=== PATIENT | female | born 1950 | race Caucasian/White ===

== ENCOUNTER 2017-09-03 11:36 | Outpatient (CLI) | payer MEDICARE ==
--- NOTE | 2017-09-04 10:11 | Mammography Report ---
BILATERAL SCREENING MAMMOGRAM: 09/03/2017 COMPARISON: Mammogram 05/21/2016. INDICATION: Screening. TECHNIQUE: Bilateral CC and MLO breast views. FINDINGS: The breast parenchyma is heterogeneously dense which may limit the sensitivity of mammography. No dominant mass, architectural distortion, or concerning cluster of microcalcifications is seen. There are postoperative changes of the right breast. IMPRESSION: 1. BI-RADS CATEGORY 2. BENIGN FINDINGS. 2. RECOMMEND ANNUAL SCREENING MAMMOGRAM. STANDARD QUALIFYING STATEMENTS: 1. This examination was reviewed with the aid of Computer-Aided Detection (CAD) . 2. A negative or benign imaging report should not delay biopsy if clinically suspicious findings are present. Consider surgical consultation if warranted. More than 5 % of cancers are not identified by imaging. 3. Dense breasts may obscure an underlying neoplasm. TD: 09/04/2017 10:10 DEIDRA
== END 2017-09-03 11:37 | disposition home or self-care (01) ==
LOC: DI.S 11:36
PROVIDERS: ATTEND Registered Nurse
DX: Z12.31 Encounter for screening mammogram for malignant neoplasm of breast (principal)
CPT/HCPCS: 77067

== ENCOUNTER 2018-12-31 10:11 | Outpatient (CLI) | payer MEDICARE ==
--- NOTE | 2019-01-05 11:10 | Mammography Report ---
Reason: ENCOUNTER FOR SCREENING MAMMOGRAM FOR MALIGNANT NE Procedure Date: 12/31/2018 Accession Number: [id number] / [id number] Procedure: MGS - Screening Mammo Dig Bilat CPT Code: FULL RESULT: EXAM: Screening Mammo Dig Bilat DATE: 12/31/2018 10:33 AM CLINICAL HISTORY: Screening encounter. History of incisional right breast biopsy 1977. History of nulliparity. TECHNIQUE: (B) - Bilateral CC and MLO views were obtained. Right laterally exaggerated CC view was obtained. COMPARISON: 09/03/2017 through 05/05/2014. PARENCHYMAL PATTERN: (D) - The breast(s) demonstrate(s) heterogeneously dense fibroglandular parenchyma. FINDINGS: There are no suspicious masses, calcifications, or areas of distortion. IMPRESSION: Negative examination. BI-RADS category 1. RECOMMENDATION: (ANNUAL) - Recommend routine annual screening mammography. BI-RADS CATEGORY: (1) - Negative. STANDARD QUALIFYING STATEMENTS: 1. This examination was reviewed with the aid of Computer-Aided Detection (CAD). 2. A negative or benign imaging report should not preclude biopsy if clinically suspicious findings are present. 3. Dense breasts may obscure an underlying neoplasm. 4. This examination was reviewed without the aid of 3D breast imaging (tomosynthesis).
== END 2018-12-31 10:12 | disposition home or self-care (01) ==
LOC: DI.S 10:11
PROVIDERS: ATTEND Registered Nurse
DX: Z12.31 Encounter for screening mammogram for malignant neoplasm of breast (principal)
CPT/HCPCS: 77067

== ENCOUNTER 2019-12-16 13:56 | Outpatient (CLI) | payer MEDICARE ==
[2019-12-16 20:10] LABS: BASOPHILS % (AUTO) 0.3 %; EOSINOPHILS % (AUTO) 0.3 %; HGB - HEMOGLOBIN 14.9 g/dL (12.0-16.0); LYMPHOCYTES # (AUTO) 1.5 10^3/uL (1.5-3.5); LYMPHOCYTES % (AUTO) 16.8 %; MEAN CORPUSCULAR HEMOGLOBIN 30.1 pg (27.0-31.0); MEAN CORPUSCULAR HGB CONC 32.3 g/dL (32.0-36.0); MEAN CORPUSCULAR VOLUME 93.3 fL (81.0-99.0); MEAN PLATELET VOLUME 9.6 fL (7.9-10.8); MONOCYTES # (AUTO) 0.9 10^3/uL (0.0-1.0); MONOCYTES % (AUTO) 9.6 %; NEUTROPHILS # (AUTO) 6.5 10^3/uL (1.5-6.6); NEUTROPHILS % (AUTO) 72.7 %; PLT - PLATELET COUNT 256 10^3/uL (130-450); RED BLOOD COUNT 4.95 10^6/uL (4.20-5.40); RED CELL DISTRIBUTION WIDTH 12.7 % (12.0-15.0); WHITE BLOOD COUNT 8.9 x10^3/uL (4.8-10.8)
[2019-12-16 20:15] LABS: RHEUMATOID FACTOR NEGATIVE (Negative)
[2019-12-16 20:29] LABS: ALBUMIN/GLOBULIN RATIO 1.4 (1.0-2.2); ALKALINE PHOSPHATASE 66 IU/L (42-121); ALT ALANINE AMINOTRANSFERASE 17 IU/L (10-60); AST ASPARTATE AMINOTRANSFERASE 21 IU/L (10-42); BILIRUBIN,TOTAL 0.7 mg/dL (0.2-1.0); BUN - BLOOD UREA NITROGEN 28 mg/dL (6-20); CALCIUM 9.9 mg/dL (8.5-10.3); CARBON DIOXIDE - CO2 27 mmol/L (21-32); CHLORIDE 103 mmol/L (101-111); CREATININE 0.7 mg/dL (0.4-1.0); GLUCOSE 155 mg/dL (70-100); SODIUM 137 mmol/L (135-145); TOTAL PROTEIN 6.8 g/dL (6.7-8.2)
[2019-12-16 20:41] LABS: THYROID STIMULATING HORMONE 1.08 uIU/mL (0.34-5.60)
[2019-12-16 20:43] LABS: FREE T3 2.99 pg/mL (2.5-3.9); FREE T4 (FREE THYROXINE) 0.93 ng/dL (0.58-1.64)
[2019-12-16 21:06] LABS: CRP - C-REACTIVE PROTEIN < 1.0 mg/dL (0-1.0)
[2019-12-19 19:39] LABS: ANA SCREEN NEGATIVE (NEGATIVE)
== END 2019-12-16 13:57 | disposition home or self-care (01) ==
LOC: LAB.S 13:56
PROVIDERS: ATTEND Nurse Practitioner Family
DX: L53.9 Erythematous condition, unspecified (principal)
CPT/HCPCS: 36415; 80053; 82378; 84439; 84443; 84481; 85025; 85651; 86038; 86140; 86430

== ENCOUNTER 2021-02-28 11:03 | Outpatient (CLI) | payer MEDICARE ==
--- NOTE | 2021-03-01 12:54 | Mammography Report ---
BILATERAL DIGITAL SCREENING MAMMOGRAM 3D/2D WITH EXAGGERATED CC: 02/28/2021 CLINICAL: Routine screening. Comparison is made to exams dated: 12/31/2018 mammogram, 09/03/2017 mammogram, and 05/21/2016 mammogra m - [facility]. There are scattered fibroglandular elements in both breasts. No significant masses, calcifications, or other findings are seen in either breast. There has been no significant interval change. IMPRESSION: NEGATIVE There is no mammographic evidence of malignancy. A 1 year screening mammogram is recommended. This exam was interpreted at Station ID: [id number]. NOTE: For mammograms, a report in lay terms will be sent to the patient. Approximately 15% of breast malignancies will not be visualized mammographically. In the management of a palpable breast mass, a negative mammogram must not discourage biopsy of a clinically suspicious lesion. Electronically Signed By: rAmond Castaneda M.D. ar/penrad:02/28/2021 11:50:04 ACR BI-RADS Category 1: Negative 3341F PARENCHYMAL PATTERN: (A) - The breast(s) demonstrate(s) scattered fibroglandular densities. BI-RADS CATEGORY: (1) - 1 RECOMMENDATION: (ANNUAL) - Recommend routine annual screening mammography. [id number] 1 year screening LATERALITY: (B)
== END 2021-02-28 11:04 | disposition home or self-care (01) ==
LOC: DI.S 11:03
DX: Z12.31 Encounter for screening mammogram for malignant neoplasm of breast (principal)

== ENCOUNTER 2022-03-06 09:47 | Outpatient (CLI) | payer MEDICARE ==
--- NOTE | 2022-03-07 12:50 | Mammography Report ---
BILATERAL DIGITAL SCREENING MAMMOGRAM 3D/2D WITH EXAGGERATED CC: 03/06/2022 CLINICAL: Routine screening. Comparison is made to exams dated: 05/21/2016 mammogram, 09/03/2017 mammogram, 12/31/2018 mammogram, a nd 02/28/2021 mammogram - [facility]. There are scattered areas of fibroglandular density in both breasts (category b / 25%-50% glandular t issue). No significant masses, calcifications, or other findings are seen in either breast. There has been no significant interval change. IMPRESSION: NEGATIVE There is no mammographic evidence of malignancy. A 1 year screening mammogram is recommended. Based on the Tyrer Cuzick model (a risk assessment model) the patients lifetime risk is 4.9% and her 10 year risk is 3.7%. According to the ACR, ACS, and NCCN guidelines, an annual breast MRI exam randee g with mammogram is recommended if the patients lifetime risk is 20% or greater. This exam was interpreted at Station ID: [id number]. NOTE: For mammograms, a report in lay terms will be sent to the patient. Approximately 15% of breast malignancies will not be visualized mammographically. In the management of a palpable breast mass, a negative mammogram must not discourage biopsy of a clinically suspicious lesion. Electronically Signed By: Ash cohen/reza:03/07/2022 09:32:47 ACR BI-RADS Category 1: Negative 3341F PARENCHYMAL PATTERN: (A) - The breast(s) demonstrate(s) scattered fibroglandular densities. BI-RADS CATEGORY: (1) - 1 RECOMMENDATION: (ANNUAL) - Recommend routine annual screening mammography. [id number] 1 year screening LATERALITY: (B)
== END 2022-03-06 09:48 | disposition home or self-care (01) ==
LOC: DI.S 09:47
DX: Z12.31 Encounter for screening mammogram for malignant neoplasm of breast (principal)

== ENCOUNTER 2022-03-09 12:46 | Outpatient (CLI) | payer MEDICARE ==
--- NOTE | 2022-03-09 16:06 | DEXA Report ---
PROCEDURE: Dexa Spine and/or Hip INDICATIONS: OSTEOPENIA TECHNIQUE: Dual energy x-ray absorptiometry (DXA) was performed on a [employer] System. Regions measur ed are the AP Spine, femoral neck, and if needed forearm. COMPARISON: 05/21/2016. FINDINGS: Lumbar Spine: Bone Mineral Density 1.016 g/cm/cm,T score -1.4. There is interval 0.3% decrease in total lumbar s pine bone mineral density. Left Hip: Bone Mineral Density 0.758 g/cm/cm,T score -2.0. There is interval 7.8% decrease in left total hip b one mineral density. Left Femoral Neck: Bone Mineral Density 0.746 g/cm/cm, T score -2.1. (T score greater or equal to -1.0: NORMAL) (T score from -1.1 to -2.4: OSTEOPENIA) (T score less than or equal to -2.5 to: OSTEOPOROSIS) Impression: Osteopenia. Patients with diagnosis of osteoporosis or osteopenia should have regular bone mineral density assess ment. For those eligible for Medicare, routine testing is allowed once every 2 years. Testing frequ ency can be increased for patients who have rapidly progressing disease or for those who are receivin g medical therapy to restore bone mass. Reviewed by: Campos Guzman MD on 03/09/2022 4:05 PM PDT Approved by: Campos Guzman MD on 03/09/2022 4:05 PM PDT Station ID: [id number]
== END 2022-03-09 12:47 | disposition home or self-care (01) ==
LOC: DI 12:46
PROVIDERS: ATTEND Registered Nurse
DX: M85.88 Other specified disorders of bone density and structure, other site (principal)

== ENCOUNTER 2023-02-20 23:49 | Outpatient (CLI) | payer MEDICARE | END 2023-02-20 23:59 | disposition critical access hospital (66) | LOC: EMS 23:49 | DX: L50.9 Urticaria, unspecified (principal) | CPT/HCPCS: A0425; A0427 ==

== ENCOUNTER 2023-02-21 00:15 | Emergency (ER) | payer MEDICARE ==
--- NOTE | 2023-02-21 01:16 | ED Physician Documentation ---
PD HPI SKIN - Stated complaint Stated Complaint: ALLERGIC REACTION - Chief complaint Chief Complaint: Allergic Rx - History obtained from History obtained from: Patient - Additional information Additional information: BIBA. Patient c/o pruritic rash. Yesterday, patient noted sudden onset pruritic rash behind right knee, applied topical cortisone and rash resolved within few hours. Since this morning, she notes BUE pruritic exanthem that has gradually spread to involve abdomen, chest, back. Denies dyspnea, wheezing, chest tightness, jaz/intraoral swelling or sensation of constriction. Given IV benadryl by EMS CALL CENTER PROFESSIONAL and symptoms nearly resolved by the time of this HPI/ROS; at the time of my HPI/ROS, only c/o bilateral forearm pruritic rash, flexor surfaces. Has not had this before. No known allergies and no apparent trigger for this event. Review of Systems Constitutional: reports: Reviewed and negative Cardiac: denies: Chest pain / pressure Respiratory: denies: Dyspnea, Cough, Wheezing Skin: reports: Rash PD PAST MEDICAL HISTORY - Past Surgical History Past Surgical History: Yes HEENT: Tonsil/Adenoidectomy - Present Medications Home Medications: Ambulatory Orders Medication Instructions Recorded Confirmed predniSONE [Deltasone] 40 mg PO DAILY 4 Days #5 tablet 02/21/23 - Allergies Allergies/Adverse Reactions: Allergies Allergy/AdvReac Type Severity Reaction Status Date / Time No Known Drug Allergies Allergy Verified 02/21/23 00:34 - Social History Does the pt smoke?: No Smoking Status: Never smoker PD ED PE NORMAL - Vitals Vital signs reviewed: Yes - General General: Alert and oriented X 3, No acute distress, Well developed/nourished - HEENT HEENT: Pharynx benign (airway widely patent) - Cardiac Cardiac: RRR, No murmur - Respiratory Respiratory: No respiratory distress, Clear bilaterally PD ED PE EXPANDED - Derm Derm: Other (bilateral forearms, flexor surfaces: faint, scattered urticaria) Results - Vitals Vitals: Oxygen O2 Source Room air PD Medical Decision Making - ED course Complexity details: considered differential, d/w patient ED course: Patient reports dramatic improvement after having received diphenhydramine from EMS. We discussed steroids as next-line treatment, but given her response to anti-histamine, mutual decision making process resulted in following plan: d/c without steroids at this time but rx provided, to be started if OTC antihistamines are inadequately effective for symptoms per label instructions. She also is advised to take pepcid if benadryl alone ineffective (can use as a bridge to steroids or else in addition to steroids). Return precautions discussed. Departure - Departure Disposition: 01 Home, Self Care Clinical Impression: Allergic urticaria Condition: Good Instructions: ED Urticaria Follow-Up: Karen Kate, ENVIRONMENTAL SAMPLER [Primary Care Provider] - Prescriptions: predniSONE [Deltasone] 40 mg PO DAILY 4 Days #5 tablet Comments: The cause of your rash is not apparent at this time, but, as we discussed, the most likely explanation is an allergic reaction. It is very common for this type of rash to present to the emergency department without an obvious/apparent cause. If you have further episodes, it is possible that it becomes apparent as to what the, and trigger is. You can follow-up with your primary care provider to discuss possible referral to an as400 operator. You can take Benadryl 25-50 mg by mouth every 6 hours as needed for symptoms (rash). If the Benadryl alone is not sufficiently improving the symptoms, you should start the steroid that I have prescribed (prednisone). As we discussed, another medication you can try, in addition to the Benadryl, is Pepcid (follow label instructions); this works through an antihistamine effect (predominantly gastrointestinal histamine receptors, but there is a small amount of crossover to the histamine receptors involved in allergic reactions such as yours). I have electronically submitted the prescription for the steroid (prednisone) to the [facility] in [place]. Forms: PCP List Discharge Date/Time: 02/21/23 03:01
[2023-02-21 11:02] VITALS: BP 136/81; O2SAT 99
== END 2023-02-21 03:01 | disposition home or self-care (01) ==
LOC: EDUNIT# → ED 00:15
DX: L50.0 Allergic urticaria (principal)
CPT/HCPCS: 99283

== ENCOUNTER 2023-04-03 10:47 | Outpatient (CLI) | payer MEDICARE ==
--- NOTE | 2023-04-04 10:01 | Mammography Report ---
BILATERAL DIGITAL SCREENING MAMMOGRAM 3D/2D WITH EXAGGERATED CC: 04/03/2023 CLINICAL: Routine screening. Comparison is made to exams dated: 02/28/2021 mammogram, 03/06/2022 mammogram, and 12/31/2018 mammogram - [facility]. There are scattered areas of fibroglandular density in both breasts (category b / 25%-50% glandular t issue). No significant masses, calcifications, or other findings are seen in either breast. There has been no significant interval change. IMPRESSION: NEGATIVE There is no mammographic evidence of malignancy. A 1 year screening mammogram is recommended. Based on the Tyrer Cuzick model (a risk assessment model) the patients lifetime risk is 4.7% and her 10 year risk is 3.9%. According to the ACR, ACS, and NCCN guidelines, an annual breast MRI exam randee g with mammogram is recommended if the patients lifetime risk is 20% or greater. This exam was interpreted at Station ID: [id number]. NOTE: For mammograms, a report in lay terms will be sent to the patient. Approximately 15% of breast malignancies will not be visualized mammographically. In the management of a palpable breast mass, a negative mammogram must not discourage biopsy of a clinically suspicious lesion. Electronically Signed By: Ash Dickey M.D. aty/:04/04/2023 07:15:55 letter sent: No_Letter ACR BI-RADS Category 1: Negative 3341F PARENCHYMAL PATTERN: (A) - The breast(s) demonstrate(s) scattered fibroglandular densities. BI-RADS CATEGORY: (1) - 1 Mammogram [id number] 1 year screening LATERALITY: (B)
== END 2023-04-03 10:48 | disposition home or self-care (01) ==
LOC: DI.S 10:47
PROVIDERS: ATTEND Registered Nurse
DX: Z12.31 Encounter for screening mammogram for malignant neoplasm of breast (principal); R92.323 Mammographic fibroglandular density, bilateral breasts

== ENCOUNTER 2023-10-03 02:51 | Outpatient (CLI) | payer MEDICARE | END 2023-10-03 23:59 | disposition critical access hospital (66) | LOC: EMS 02:51 | DX: I48.91 Unspecified atrial fibrillation (principal) | CPT/HCPCS: A0425; A0427 ==

== ENCOUNTER 2023-10-03 03:17 | Emergency (ER) | payer MEDICARE ==
--- NOTE | 2023-10-03 03:14 | ED Physician Documentation ---
History of Present Illness - Stated complaint Stated Complaint: IRREG HR - History obtained from History obtained from: Patient, EMS - Additonal information Additional information: HPI from patient, EMS. Patient BIBA for sudden onset rapid palpitations at approximately 1 AM. Onset was while at home, at rest but awake. Denies chest pain, diaphoresis, n/v. Denies leg swelling. Had similar episode in the past but testing/evaluation was undertaken after symptoms had resolved. EMS arrived to find heart rate 150s with EKG c/w CLAIRE. Patient given 15mg IV diltiazem en route and, by the time of ED arrival, she is asymptomatic and heart rate is 100-110 although rhythm unclear upon ED triage. Patient denies cardiac history. She has never had stress test. Review of Systems Cardiac: reports: Palpitations. denies: Chest pain / pressure, Pedal edema, Calf pain Respiratory: reports: Reviewed and negative GI: reports: Reviewed and negative PD PAST MEDICAL HISTORY - Past Medical History Past Medical History: No - Present Medications Home Medications: Ambulatory Orders Medication Instructions Recorded Confirmed No Known Home Medications 10/03/23 10/03/23 - Allergies Allergies/Adverse Reactions: Allergies Allergy/AdvReac Type Severity Reaction Status Date / Time No Known Drug Allergies Allergy Verified 10/03/23 03:43 PD ED PE NORMAL - Vitals Vital signs reviewed: Yes - General General: Alert and oriented X 3, No acute distress, Well developed/nourished - Cardiac Cardiac: RRR, No murmur, No gallop, No rub, Other (baseline is regular rhythm with frequent extra beats that correlate with PACs on monitor) - Respiratory Respiratory: No respiratory distress, Clear bilaterally - Abdomen Abdomen: Soft, Non tender - Extremities Extremities: No edema Results - Vitals Vitals: Vital Signs - 24 hr 10/03/23 10/03/23 10/03/23 03:20 03:27 04:00 Temperature 36.6 C Heart Rate 71 65 Respiratory 18 17 Rate Blood Pressure 130/72 117/67 Blood Pressure 128/71 [Right] O2 Saturation 100 99 10/03/23 10/03/23 04:30 05:00 Temperature 36.7 C Heart Rate 64 64 Respiratory 16 16 Rate Blood Pressure 117/68 117/69 Blood Pressure [Right] O2 Saturation 99 99 Oxygen O2 Source Room air - EKG (time done) No standard instances EKG releavant findings:: EKG personally interpreted by author of this note. Relevant findings are: Rate: Rate (enter#) (73) Rhythm: NSR [place]: Normal Intervals: Normal [place] QRS: Normal Ischemia: Normal ST segments - Labs Labs: Laboratory Tests 10/03/23 10/03/23 03:42 03:42 WBC 6.1 RBC 4.90 Hgb 14.7 Hct 46.4 MCV 94.7 MCH 30.0 MCHC 31.7 L RDW 12.4 Plt Count 199 MPV 9.5 Neut # (Auto) 4.2 Lymph # (Auto) 1.1 L Josephine # (Auto) 0.6 Eos # (Auto) 0.1 Baso # (Auto) 0.0 Absolute Nucleated RBC 0.00 Nucleated RBC % 0.0 Sodium 137 Potassium 3.7 Chloride 105 Carbon Dioxide 27 Anion Gap 5.0 L BUN 21 H Creatinine 0.6 Estimated GFR (MDRD) 98 Glucose 141 H Calcium 9.8 Total Bilirubin 0.4 AST 16 ALT 13 Alkaline Phosphatase 78 Troponin I High Sens 15.2 H* Total Protein 6.6 Albumin 3.8 Globulin 2.8 Albumin/Globulin Ratio 1.4 Lipase 12 - Rads (name of study) chest xray Relevant Findings:: Prelim report reviewed, See rad report PD Medical Decision Making - ED course Complexity details: reviewed results, re-evaluated patient, considered differential, d/w patient ED course: Presents via EMS for rapid palpitations associated with new-onset rapid atrial fibrillation. Given 15mg cardizem en route by EMS and she appears to be in NSR with frequent ectopy (mostly PACs although occasional PVCs also noted on monitor). EMS provides EKG performed in field which demonstrate CLAIRE with rate 150s s/o 2:1 atrial flutter. During ED stay, the ectopy decreased in frequency and prior to d/c she was NSR with rare PACs and asymptomatic. Unremarkable CBC, ER abdominal panel. Minimally elevated troponin (15.2); given no symptoms beyond rapid palpitations (specifically no chest pain/pressure/tightness, no dyspnea), this minimally-elevated hs-cTn is insignificant and noncontributory. Results d/w patient as is diagnosis. I recommended she contact her PMD in the morning to arrange for next available appointment for reevaluation. Return precautions reviewed. Departure - Departure Disposition: 01 Home, Self Care Clinical Impression: Atrial fibrillation Condition: Good Instructions: ED Afib Comments: There were no concerning nor diagnostic findings on tonight's tests including the EKG, blood test, and chest x-ray. When EMS first arrived to your house, you were in rapid atrial fibrillation; you were given 15 mg of diltiazem through the your IV. Diltiazem is typically medication used to control high blood pressure but, in this case, it was used to slow your heart rate. In slowing your heart rate into a normal range, it allowed for your heart rhythm to resume normal (sinus) rhythm. Follow-up with your primary care provider, next available appointment, for reevaluation. At this time, you do not need any medications. There are certain things you should avoid to lower the risk of recurrent atrial fibrillation (such as caffeine, smoking, decongestants; see the discharge instructions on atrial fibrillation provided within this discharge packet). Forms: PCP List Discharge Date/Time: 10/03/23 05:10
[2023-10-03 03:52] LABS: BASOPHILS % (AUTO) 0.5 %; EOSINOPHILS # (AUTO) 0.1 10^3/uL (0.0-0.7); HCT - HEMATOCRIT 46.4 % (37.0-47.0); HGB - HEMOGLOBIN 14.7 g/dL (12.0-16.0); LYMPHOCYTES # (AUTO) 1.1 10^3/uL (1.5-3.5); MEAN CORPUSCULAR HGB CONC 31.7 g/dL (32.0-36.0); MEAN CORPUSCULAR VOLUME 94.7 fL (81.0-99.0); MEAN PLATELET VOLUME 9.5 fL (7.9-10.8); MONOCYTES # (AUTO) 0.6 10^3/uL (0.0-1.0); MONOCYTES % (AUTO) 10.6 %; NEUTROPHILS # (AUTO) 4.2 10^3/uL (1.5-6.6); NEUTROPHILS % (AUTO) 69.7 %; PLT - PLATELET COUNT 199 10^3/uL (130-450); RED CELL DISTRIBUTION WIDTH 12.4 % (12.0-15.0); WHITE BLOOD COUNT 6.1 x10^3/uL (4.8-10.8)
[2023-10-03 04:06] LABS: ALBUMIN 3.8 g/dL (3.2-5.5); ALBUMIN/GLOBULIN RATIO 1.4 (1.0-2.2); BILIRUBIN,TOTAL 0.4 mg/dL (0.2-1.0); CALCIUM 9.8 mg/dL (8.5-10.3); CREATININE 0.6 mg/dL (0.6-1.3); POTASSIUM 3.7 mmol/L (3.5-4.5); TOTAL PROTEIN 6.6 g/dL (6.4-8.9)
[2023-10-03 04:10] LABS: TROPONIN I HIGH SENSITIVITY 15.2 ng/L (2.3-14.8)
[2023-10-03 05:20] VITALS: BP 117/69; O2SAT 99
--- NOTE | 2023-10-03 08:55 | XRAY Report ---
PROCEDURE: Chest 1V INDICATIONS: Chest pain TECHNIQUE: One view of the chest was acquired. COMPARISON: None. FINDINGS: Surgical changes and devices: None. Lungs and pleura: No pleural effusions or pneumothorax. Lungs are clear. Mediastinum: Mediastinal contours appear normal. Heart size is normal. Bones and chest wall: No suspicious bony lesions. Overlying soft tissues appear unremarkable. IMPRESSION: No acute cardiopulmonary process. Findings are concordant with preliminary interpretation provided by [facility]. Reviewed by: Silvano Win MD on 10/03/2023 8:53 AM PDT Approved by: Silvano Win MD on 10/03/2023 8:53 AM PDT Station ID: [id number]
== END 2023-10-03 05:10 | disposition home or self-care (01) ==
LOC: EDUNIT# → ED 03:17
DX: I48.91 Unspecified atrial fibrillation (principal)
CPT/HCPCS: 36415; 80053; 83690; 84484; 85025; 93005; 99283; 99284

== ENCOUNTER 2023-12-12 23:08 | Outpatient (CLI) | payer MEDICARE | END 2023-12-12 23:59 | disposition critical access hospital (66) | LOC: EMS 23:08 | DX: R00.2 Palpitations (principal) | CPT/HCPCS: A0425; A0429 ==

== ENCOUNTER 2023-12-12 23:34 | Emergency (ER) | payer MEDICARE ==
--- NOTE | 2023-12-12 23:39 | ED Physician Documentation ---
History of Present Illness - Stated complaint Stated Complaint: CHEST PRESSURE - History obtained from History obtained from: Patient - Additonal information Additional information: 73yF with pmh afib on eliquis p/w pounding sensation in chest Around 7:30 PM prompting her to take her blood pressure which was elevated. She took 25 of metoprolol and subsequently took her blood pressure multiple times with it progressively increasing each time. Upon EMS arrival she was given 325 of aspirin and presented to the ED. She states that her symptoms have resolved at this point. Denies chest pain, shortness of breath, fever, cough, leg swelling, nausea or vomiting. PD PAST MEDICAL HISTORY - Past Medical History Cardiovascular: Other - Past Surgical History Past Surgical History: Yes HEENT: Tonsil/Adenoidectomy - Present Medications Home Medications: Ambulatory Orders Medication Instructions Recorded Confirmed No Known Home Medications 10/03/23 10/03/23 - Allergies Allergies/Adverse Reactions: Allergies Allergy/AdvReac Type Severity Reaction Status Date / Time No Known Drug Allergies Allergy Verified 10/03/23 03:43 - Social History Does the pt smoke?: No Smoking Status: Never smoker Does the pt drink ETOH?: No Does the pt have substance abuse?: No - Immunizations Immunizations are current?: Yes - POLST Patient has POLST: No PD ED PE NORMAL - Vitals Vital signs reviewed: Yes - General General: Alert and oriented X 3, No acute distress, Well developed/nourished - HEENT HEENT: Atraumatic, PERRL, EOMI - Neck Neck: Supple, no meningeal sign - Cardiac Cardiac: RRR - Respiratory Respiratory: No respiratory distress, Clear bilaterally - Abdomen Abdomen: Non tender, Non distended - Derm Derm: Normal color, Warm and dry - Extremities Extremities: No deformity - Neuro Neuro: Alert and oriented X 3 - Psych Psych: Normal mood, Normal affect Results - Vitals Vitals: Vital Signs - 24 hr 12/12/23 12/12/23 12/12/23 23:35 23:47 23:50 Temperature 36.9 C 36.9 C Heart Rate 89 66 68 Respiratory 18 19 16 Rate Blood Pressure 156/77 H 156/77 H O2 Saturation 98 98 99 Oxygen O2 Source Room air - EKG (time done) 2343 EKG releavant findings:: EKG personally interpreted by author of this note. Relevant findings are: Rate: Rate (enter#) (68) Rhythm: NSR, Other (PVCs) Intervals: Normal [place] QRS: Normal Ischemia: Normal ST segments - Labs Labs: Laboratory Tests 12/12/23 23:48 WBC 9.3 RBC 4.63 Hgb 14.2 Hct 43.2 MCV 93.3 MCH 30.7 MCHC 32.9 RDW 12.7 Plt Count 216 MPV 9.6 Neut # (Auto) 6.8 H Lymph # (Auto) 1.2 L Cassia # (Auto) 1.1 H Eos # (Auto) 0.1 Baso # (Auto) 0.0 Absolute Nucleated RBC 0.00 Nucleated RBC % 0.0 PD Medical Decision Making - ED course ED course: 73-year-old woman presents with pounding sensation in chest tonight, found to have PVCs on her EKG. Chest x-ray looks clear and lab work is otherwise benign. Plan to discharge home to follow-up with her acupressurist as an outpatient. Return precautions given. Departure - Departure Clinical Impression: PVCs (premature ventricular contractions) Condition: Stable Instructions: Premature Ventricular Contract About Comments: You were seen in the emergency department for Medical evaluation and found to have premature ventricular contractions on EKG. This is usually benign self- limited condition but you should follow-up with your acupressurist in regards to it just in case. Continue taking medications as prescribed. Please follow-up with your primary care provider as well and return to the e mergency department if you have any new or worsening symptoms or other concerns.
[2023-12-12 23:52] LABS: BASOPHILS % (AUTO) 0.4 %; EOSINOPHILS # (AUTO) 0.1 10^3/uL (0.0-0.7); EOSINOPHILS % (AUTO) 0.6 %; HCT - HEMATOCRIT 43.2 % (37.0-47.0); HGB - HEMOGLOBIN 14.2 g/dL (12.0-16.0); LYMPHOCYTES # (AUTO) 1.2 10^3/uL (1.5-3.5); LYMPHOCYTES % (AUTO) 13.3 %; MEAN CORPUSCULAR HEMOGLOBIN 30.7 pg (27.0-31.0); MEAN CORPUSCULAR HGB CONC 32.9 g/dL (32.0-36.0); MEAN CORPUSCULAR VOLUME 93.3 fL (81.0-99.0); MEAN PLATELET VOLUME 9.6 fL (7.9-10.8); MONOCYTES # (AUTO) 1.1 10^3/uL (0.0-1.0); NEUTROPHILS # (AUTO) 6.8 10^3/uL (1.5-6.6); NEUTROPHILS % (AUTO) 73.5 %; PLT - PLATELET COUNT 216 10^3/uL (130-450); RED BLOOD COUNT 4.63 10^6/uL (4.20-5.40); RED CELL DISTRIBUTION WIDTH 12.7 % (12.0-15.0); WHITE BLOOD COUNT 9.3 x10^3/uL (4.8-10.8)
[2023-12-13 00:13] LABS: TROPONIN I HIGH SENSITIVITY 9.7 ng/L (2.3-14.8)
[2023-12-13 00:16] VITALS: BP 117/66; O2SAT 97
[2023-12-13 00:16] LABS: ALBUMIN/GLOBULIN RATIO 1.5 (1.0-2.2); BILIRUBIN,TOTAL 0.4 mg/dL (0.2-1.0); CALCIUM 9.8 mg/dL (8.5-10.3); CREATININE 0.6 mg/dL (0.6-1.3); POTASSIUM 4.2 mmol/L (3.5-4.5); TOTAL PROTEIN 6.7 g/dL (6.4-8.9)
--- NOTE | 2023-12-13 00:16 | XRAY Report ---
PROCEDURE: Chest 1V INDICATIONS: Chest Pain TECHNIQUE: One view of the chest was acquired. COMPARISON: 10/03/2023 FINDINGS: Surgical changes and devices: None. Lungs and pleura: No pleural effusions or pneumothorax. Lungs are clear. Mediastinum: Mediastinal contours appear normal. Heart size is normal. Bones and chest wall: No suspicious bony lesions. Overlying soft tissues appear unremarkable. IMPRESSION: No acute cardiopulmonary process. Reviewed by: Ash Darden MD on 12/13/2023 12:15 AM PDT Approved by: Ash Darden MD on 12/13/2023 12:15 AM PDT Station ID: [id number]
== END 2023-12-13 01:07 | disposition home or self-care (01) ==
LOC: EDUNIT# → ED 23:34
DX: I49.3 Ventricular premature depolarization (principal); I48.91 Unspecified atrial fibrillation; Z79.01 Long term (current) use of anticoagulants; Z79.82 Long term (current) use of aspirin
CPT/HCPCS: 36415; 80053; 83690; 84484; 85025; 93005; 99283; 99284

== ENCOUNTER 2023-12-14 03:30 | Outpatient (CLI) | payer MEDICARE | END 2023-12-14 23:59 | disposition critical access hospital (66) | LOC: EMS 03:30 | DX: I48.91 Unspecified atrial fibrillation (principal) | CPT/HCPCS: A0425; A0427 ==

== ENCOUNTER 2023-12-14 03:54 | Emergency (ER) | payer MEDICARE ==
--- NOTE | 2023-12-14 04:01 | ED Physician Documentation ---
History of Present Illness - Stated complaint Stated Complaint: AFIB - History obtained from History obtained from: Patient, EMS - Additonal information Additional information: BIBA. HPI is predominantly from patient, with some HPI narrative Per EMS report. Patient called 911 herself this morning due to rapid and irregular palpitations. Patient had a similar episode 2 months ago for which she presented to [facility] ED (I was the ED physician on duty at that time), found to be in new-onset atrial fibrillation/flutter in the field by EMS, but converted to normal sinus rhythm with Cardizem IV administered by EMS [employer]. She has since been started on Eliquis for the atrial fibrillation. Patient says she did not have these palpitations during the day yesterday, but at approximately 1:15 this morning, she became aware (while lying in bed) of rapid and irregular palpitations. She is not sure if she woke up due to the palpitations or was awake already. She denies shortness of breath, denies chest pain/pressure/tightness, denies lightheadedness. Patient says that she was told by her mortar carrier that she can take a dose of PRN metoprolol for rapid palpitations, and she did so at approximately 1:30 AM. She was instructed to call 911 if she did not have improvement after 30 minutes. Patient says she waited closer to 1 hour and, due to ongoing symptoms, call 911. Note the patient also was treated and released from this emergency department 2 days ago for pounding palpitations but ED MD note indicates she was in NSR on that visit . Review of Systems Cardiac: reports: Palpitations. denies: Chest pain / pressure, Pedal edema, Calf pain Respiratory: reports: Reviewed and negative GI: reports: Reviewed and negative PD PAST MEDICAL HISTORY - Past Medical History Cardiovascular: Other - Past Surgical History Past Surgical History: Yes HEENT: Tonsil/Adenoidectomy - Present Medications Home Medications: Ambulatory Orders Medication Instructions Recorded Confirmed Apixaban [Eliquis] 5 mg PO BID 12/13/23 12/14/23 Metoprolol Tartrate [Lopressor] 25 mg PO PRN PRN 12/13/23 12/14/23 diltiaZEM CD [Cardizem Cd] 120 mg PO DAILY #14 cap 12/14/23 - Allergies Allergies/Adverse Reactions: Allergies Allergy/AdvReac Type Severity Reaction Status Date / Time No Known Drug Allergies Allergy Verified 12/13/23 00:12 - Social History Does the pt smoke?: No Smoking Status: Never smoker Does the pt drink ETOH?: No Does the pt have substance abuse?: No - Immunizations Immunizations are current?: Yes - POLST Patient has POLST: No PD ED PE NORMAL - Vitals Vital signs reviewed: Yes - General General: Alert and oriented X 3, No acute distress, Well developed/nourished - Cardiac Cardiac: No murmur - Respiratory Respiratory: No respiratory distress, Clear bilaterally - Abdomen Abdomen: Soft, Non tender - Extremities Extremities: No edema - Neuro Neuro: Alert and oriented X 3 PD ED PE EXPANDED - Cardiac Cardiac: Tachy, Irregularly irregular Results - Vitals Vitals: Vital Signs - 24 hr 12/14/23 12/14/23 12/14/23 04:06 04:27 04:33 Temperature 36.1 C L Heart Rate 133 H 101 H 74 Respiratory 20 16 14 Rate Blood Pressure 134/104 H 102/72 96/71 O2 Saturation 100 100 99 12/14/23 12/14/23 04:47 06:00 Temperature Heart Rate 80 91 Respiratory 18 14 Rate Blood Pressure 115/77 114/79 O2 Saturation 99 98 Oxygen O2 Source Room air - EKG (time done) No standard instances EKG releavant findings:: EKG personally interpreted by author of this note. Relevant findings are: Rate: Rate (enter#) (129), Tachy Rhythm: Atrial fibrillation [place]: Normal QRS: LVH Ischemia: Normal ST segments - Labs Labs: Laboratory Tests 12/14/23 04:08 Sodium 138 Potassium 3.8 Chloride 105 Carbon Dioxide 28 Anion Gap 5.0 L BUN 18 Creatinine 0.6 Estimated GFR (MDRD) 98 Glucose 128 H Calcium 9.6 Magnesium 1.8 PD Medical Decision Making - ED course Complexity details: reviewed old records, reviewed results, re-evaluated patient, considered differential, d/w patient ED course: Patient had CBC on [facility] ED visit 2 days ago, and this was unremarkable and thus not repeated tonight. She arrives in rapid atrial fibrillation on monitor as well as on EKG and is given 15 mg IV diltiazem. This intervention resulted in normalization of the rate although she did remain in atrial fibrillation. Fortunately, she is taking Eliquis and thus is appropriately anticoagulated. BMP and magnesium level are without concerning findings. She was able to ambulate to and back from bathroom in ED without recurrence of her symptoms (palpitations) and remained in atrial fibrillation throughout ED stay but persistent rate control after the IV diltiazem. Results d/w patient. She is given 120mg diltiazem CD PO and d/c with rx for same to patient's pharmacy of choice. Return precautions reviewed. She has a scheduled televisit with mortar carrier in a few days and I instructed her to discuss the cardizem rx with the mortar carrier to see if they recommend continuing beyond the two week course I have prescribed (versus discontinue or else change to different medication). Departure - Departure Disposition: 01 Home, Self Care Clinical Impression: Atrial fibrillation Condition: Good Instructions: ED Afib Prescriptions: diltiaZEM CD [Cardizem Cd] 120 mg PO DAILY #14 cap Comments: Basic blood tests performed tonight were unremarkable. Aside from atrial fibrillation, there were no other abnormalities on tonight's EKG. As we discussed, you are on an appropriate blood-thinning medication for atrial fibrillation (Eliquis). In such a case, the next most important of treatment of your atrial fibrillation is rate controlled. You were given an IV medication in the emergency department (diltiazem), which did result in excellent rate control despite remaining in atrial fibrillation. I have electronically submitted a prescription for the oral form of the diltiazem to the [facility] pharmacy in [place]. You were given a dose of the oral diltiazem in the emergency department so your next dose will not be until tomorrow (12/15/2023). PRIOR TO TAKING YOUR DAILY DOSE OF DILTIAZEM, CHECK YOUR BLOOD PRESSURE. IF YOUR SYSTOLIC BLOOD PRESSURE (TOP NUMBER) IS AT OR BELOW 100, DO NOT TAKE THAT DAY'S DOSE OF DILTIAZEM. IF YOU HAVE ANOTHER EPISODE OF RAPID HEART RATE, CHECK YOUR BLOOD PRESSURE. IF YOUR SYSTOLIC BLOOD PRESSURE IS AT OR BELOW 100, DO NOTA TAKE THE (-NEEDED) METOPROLOL. CONSIDER CALLING 911 IN THIS SITUATION. IF YOUR SYSTOLIC BLOOD PRESSURE IS ABOVE 100, YOU CAN TAKE A DOSE OF THE METOPROLOL PER YOUR PRIMARY CARE PROVIDER'S DIRECTIONS (FOLLOW THE PRESCRIPTION LABEL INSTRUCTIONS). Forms: PCP List Discharge Date/Time: 12/14/23 06:23
[2023-12-14] MEDS: diltiaZEM INJ 5 MG/ML VIAL IVP STA (04:18)
[2023-12-14 04:31] LABS: CALCIUM 9.6 mg/dL (8.5-10.3); CREATININE 0.6 mg/dL (0.6-1.3); MAGNESIUM 1.8 mg/dL (1.7-2.3); POTASSIUM 3.8 mmol/L (3.5-4.5)
[2023-12-14] MEDS: diltiaZEM CD 120 MG CAPSULE PO STA (06:15)
[2023-12-14 06:16] VITALS: BP 114/79; O2SAT 98
== END 2023-12-14 06:23 | disposition home or self-care (01) ==
LOC: ED 03:54
DX: I48.91 Unspecified atrial fibrillation (principal); Z79.01 Long term (current) use of anticoagulants
CPT/HCPCS: 36415; 80048; 83735; 93005; 96374; 99284; A9270

== ENCOUNTER 2023-12-17 12:52 | Outpatient (CLI) | payer MEDICARE | END 2023-12-17 12:53 | disposition home or self-care (01) | LOC: DI 12:52 | PROVIDERS: ATTEND Registered Nurse | DX: I48.0 Paroxysmal atrial fibrillation (principal); I49.1 Atrial premature depolarization; I51.7 Cardiomegaly | CPT/HCPCS: 93307 ==